=== PATIENT | male | born 1955 | race Caucasian/White ===

== ENCOUNTER 2020-09-07 08:28 | Emergency (ER) | payer BC ==
[~2020-09-07] VITALS: Ht 167.6 cm; Wt 80.9 kg
--- NOTE | ~2020-09-07 | HC ---
[facility] [place] [place] [address] CONSULTATION Name: DIMITRIOS OLIVERA Room #: DEP Belkys#: [id number] Admission: 09/07/20 Attend Phys: Discharge: 09/07/20 Date of : 55 Report #: [id number] THIS REPORT FOR: cc: TON - No family physician/PCP FAM - No family physician/PCP Justin Luevano MD ~ DATE OF SERVICE: 09/07/2020 HISTORY OF PRESENT ILLNESS: This is a 65-year-old male patient who was evaluated by me in the Emergency Room. I talked to the Emergency Room physician multiple times. Subsequently, I talked to Dr. Valencia, who is going to meet the admitted physician. The patient presented with symptoms on the left side and he has walking difficulty. The problem mostly was in coordination. The patient was way outside the window for any TPA because it happened at 10:00 p.m. last night when he was seen last well. He knew he had symptom even 3:00 in the morning. REVIEW OF SYSTEMS: Indicate the patient is a smoker. He has been smoking for a long time. He says that he has not seen a doctor for a long time. He does not even know what his cholesterol is. He never had any stroke or any cardiac issues in the past according to him. Rest of the review of system was mostly unremarkable. PAST MEDICAL HISTORY: Negative for stroke. FAMILY HISTORY: Unremarkable. SOCIAL HISTORY: He drinks in moderation, but he smokes. PHYSICAL EXAMINATION: Indicates he is alert, responsive, able to follow simple and complex command. Cranial nerve examination does not appear to be showing any marked problem. He is somewhat weak in the left upper and left lower extremity, but he is markedly ataxic there, especially [id number] on the left side. There is no meningeal sign. There is no carotid bruit in this patient. Cardiorespiratory examination is unremarkable. IMPRESSION: I had talked to Dr. Caal multiple times and this patient has multiple tests done in the Emergency Room. His CT angio of the head and neck is mostly unremarkable. So, we proceeded with MRI, which confirmed the stroke, but surprisingly stroke is in the frontal area and the patient is mostly ataxic. The patient also has extensive small vessel ischemic changes. RECOMMENDATIONS: 1. The patient was strongly advised to stop smoking. [address] [address] CONSULTATION Name: JARODDIMITRIOS CATHI Room #: DEP Belkys#: [id number] Admission: 09/07/20 Attend Phys: Discharge: 09/07/20 Date of : 55 Report #: [id number] 2. We will put him on dual-antiplatelet therapy. 3. This patient had a stroke and his intracranial vessels appeared to be clean. He needs extensive workup to look for any atrial fibrillation or cardiac source of emboli. We will check an echo, and he may even need ANDIE. He will definitely need either 30 days event monitor or loop recorder to look for atrial fibrillation. Rest of the management will depend upon the outcome of these testing and he may need rehabilitation depending upon how much recovery he makes because he is pretty ataxic and walking, but we will see first how he does with physical therapy because sometimes they improve rather fast. Thank you very much for this referral. I spent more than 1 hour of time taking care of this patient and majority was spent counseling and coordinating. By: [id number] Justin Luevano MD /nt
[2020-09-07 08:54] VITALS: BP 164/90
[2020-09-07 09:01] LABS: ABSOLUTE NEUTROPHILS 5.2 thou/uL (1.4-8.2); BASOPHILS 1.2 % (0.0-2.0); EOSINOPHILS 3.9 % (0.0-3.0); HEMATOCRIT 49.7 % (42.0-52.0); HEMOGLOBIN 17.3 gm/dL (14.0-18.0); MCHC 34.8 g/dL (28.0-37.0); MONOCYTES 7.7 % (1.0-8.0); PLATELET COUNT 312 thou/uL (150-400); POLYS 63.2 % (36.0-66.0); RDW 14.5 % (10.5-14.5); WBC 8.3 thou/uL (4.0-11.0)
[2020-09-07 09:13] LABS: ANION GAP 13 mmol/L (7-16); BUN 13 mg/dL (7-18); CALCIUM 9.8 mg/dL (8.5-10.1); CHLORIDE 100 mmol/L (98-107); CO2 25 mmol/L (21-32); CREATININE 1.2 mg/dL (0.7-1.3); GLUCOSE 110 mg/dL (74-106); POTASSIUM 3.9 mmol/L (3.5-5.1); SODIUM 138 mmol/L (136-145)
[2020-09-07 09:24] LABS: ALBUMIN 4.2 g/dL (3.4-5.0); MAGNESIUM 2.1 mg/dL (1.8-2.4); SGOT 17 U/L (15-37); SGPT 33 U/L (30-65); TOTAL BILIRUBIN 0.5 mg/dL (0.2-1.0); TOTAL PROTEIN 8.6 g/dL (6.4-8.2); TROPONIN-I <0.06 ng/mL (<0.06)
[2020-09-07 09:25] LABS: APTT 29.2 Seconds (24.5-32.8); PROTIME 10.5 Seconds (9.3-11.4)
--- NOTE | 2020-09-07 09:43 | EKG ---
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
[2020-09-07 11:06] LABS: URINE BILIRUBIN NEGATIVE (Negative); URINE BLOOD NEGATIVE (Negative); URINE CLARITY CLEAR; URINE COLOR YELLOW; URINE GLUCOSE-RANDOM* NEGATIVE (Negative); URINE KETONES NEGATIVE (Negative); URINE LEUKOCYTES-REFLEX NEGATIVE (Negative); URINE NITRITE-REFLEX NEGATIVE (Negative); URINE PROTEIN (DIPSTICK) NEGATIVE (Negative); URINE SPECIFIC GRAVITY 1.015 (1.005-1.035); URINE UROBILINOGEN 0.2 E.U./dl (0.2-1.0)
[2020-09-07 11:08] LABS: AMP/METHAMP Negative (Negative); BARBITURATES Negative (Negative); BENZODIAZEPINES Negative (Negative); COCAINE Negative (Negative); METHADONE Negative (Negative); OPIATES Negative (Negative); PCP Negative (Negative)
[2020-09-07 12:05] VITALS: BP 154/88
[2020-09-07 12:23] LABS: FOLIC ACID 14.1 ng/mL (8.6-58.9)
--- NOTE | 2020-09-07 15:19 | NUR ---
IN REFERENCE TO PROGRESS ED note at 1357 where ED provider notes: "Leyla Andres would like the pt transferred because their insurance is not in network. We are looking for hospitals are in his network to contact". Notified to call ED at 1355 and was told that the ED was instructed to call Case Management as Registration stated the patient was out of network. Informed ED that I would contact the Registration leadership to have the ED registration person (as their role is benefit verification and notification of admissions) notify the ED clinical staff of in-network providers once determined. Notified Application Architect as well. Registration informed they will have to check for the correct providers for transfer to let the ED clinical staff know of options. Registration notified Application Architect patient was in-network. Upon further review and patient now admitted; found that patient is out of network per Availity. Will alert Registration and will follow patient now admitted for care.
[2020-09-07 20:27] VITALS: BP 163/88
[2020-09-08 01:07] LABS: GLYCOHEMOGLOBIN (HGB A1C) 5.7 % (4.8-5.6)
== END 2020-09-07 20:30 | disposition short-term general hospital (02) ==
LOC: ER 08:28 → EROBS 11:08 → ER 11:08
PROVIDERS: Emergency Medicine; Nurse Practitioner
DX: I63.89 Other cerebral infarction (principal); F17.210 Nicotine dependence, cigarettes, uncomplicated; Z20.828 Contact with and (suspected) exposure to other viral communicable diseases